=== PATIENT | male | born 1945 | race Caucasian/White ===

== ENCOUNTER 2016-12-27 07:07 | Day surgery (SDC) | payer MEDICARE ==
[~2016-12-27] VITALS: Ht 172.7 cm; Wt 93.2 kg
[~2016-12-27 07:07] MED LIST: BAYER CHEWABLE81 MG PO; CLARITIN 10 MG10 MG PO; GLUCOPHAGE500 MG PO; HEMOCYTE PLUS C1 CAP PO; HYDROCHLOROTH12.5 M1 PO; HYDROCHLOROTHIA25 MG PO; HYDROCODONE-APA1 TAB PO; K-DUR20 MEQ PO; LASIX40 MG PO; LISINOPRIL10 MG PO; METOPROLOL TART50 MG PO; NIASPAN500 MG PO; PLAVIX75 MG PO; PRAVACHOL40 MG PO
[2016-12-27 08:20] LABS: BASOPHILS 0.5 % (0.0-2.0); EOSINOPHILS 1.8 % (0-7); HEMATOCRIT 42.6 % (42.0-54.0); IMMATURE GRANULOCYTES 0.6 % (0-5); LYMPHOCYTES 32.6 % (15-50); MCH 29.9 pg (26.0-34.0); MCHC 32.9 g/dL (31.0-37.0); MEAN PLATELET VOLUME 9.1 fL (7.4-10.4); MONOCYTES 8.5 % (2-11); RBC 4.68 10x6/uL (4.20-6.10); RDW 13.7 % (11.5-14.5); WBC 6.6 10x3/uL (4.8-10.8)
[2016-12-27 08:28] LABS: CALCIUM 9.4 mg/dL (8.5-10.1); CARBON DIOXIDE 32.4 mmol/L (21.0-32.0); CREATININE - SERUM 1.2 mg/dL (0.6-1.3); PLATELET COUNT 199 10x3/uL (130-400); POTASSIUM - SERUM 4.4 mmol/L (3.5-5.1)
[2016-12-27] MEDS ORDERED: HYDROCHLOROTHIA25 MG PO (08:31)
[2016-12-27 08:37] VITALS: BP 121/62; Ht 172.7 cm; Wt 93.2 kg
--- NOTE | 2016-12-27 10:23 | NUR ---
1024-DILATE ESOPHAGUS WITH 54 FR .
--- NOTE | 2016-12-27 11:34 | NUR ---
1115-RECEIVED PT FROM GI LAB, PASSING GAS AND DENIES ANY N/V FAMILY AT BEDSIDE WILL CONTINUE TO MONITOR 1135-FULL LIQUID TRAY GIVEN ALONG WITH A COKE. DR HERNANDEZ IN ROOM SPEAKING WITH PATIENT AND PTS FAMILY
--- NOTE | 2017-01-27 09:40 | HP ---
PATIENT: JENNY HERNÁNDEZ MEDICAL RECORD: [id number] ACCOUNT: [id number] LOCATION:DFeliceOPS : 43 ADMISSION DATE: 12/27/16 HISTORY AND PHYSICAL EXAMINATION CHIEF COMPLAINT: Heme-positive stool. HISTORY OF PRESENT ILLNESS: The patient's primary care physician is Dr. Parmar. He has had some dysphagia. No odynophagia. Dysphagia is at the level of the cricopharyngeus. He does have gastroesophageal reflux. He has a heme-positive stools. He has noted no hematochezia. He has had no abdominal pain. No prior colonoscopy. SOCIAL HISTORY: He is a smoker. I have advised him to quit smoking. HOME MEDICINES: Plavix, lisinopril, metoprolol, pravastatin, aspirin, hydrochlorothiazide and metformin. ALLERGIES: No known drug allergies. PAST MEDICAL AND SURGICAL HISTORY: Coronary artery disease, hypertension, non-insulin dependent diabetes mellitus, gastroesophageal reflux, myocardial infarction, CABG, carotid endarterectomy. REVIEW OF SYSTEMS: Negative for CVA or seizures. Negative for thyroid disease or renal disease. PHYSICAL EXAMINATION: GENERAL: The patient does not appear acutely ill. He does appear chronically ill. VITAL SIGNS: Reviewed. HEAD: External ears appear normal. EYES: Extraocular movements are intact. NECK: Trachea is midline. CHEST: No intercostal retractions. PULMONARY: Nonlabored and no stridor. ABDOMEN: No peritonitis with movement. IMPRESSION: 1. Fecal occult blood positivity. 2. Gastroesophageal reflux. 3. Dysphagia. PLAN: EGD, esophageal dilation, colonoscopy. TRANSINT:[id number] Voice Confirmation ID: [id number] DOCUMENT ID: [id number] HISTORY AND PHYSICAL [id number] EDGARJENNY DON SKY HERNANDEZ, MILLI VELAZQUEZ at 0940 CC: ARGELIA PRAMAR MD [id number] DICTATION DATE: 12/27/16 1017 DRAPERY ROD ASSEMBLER: 12/27/16 1110 [facility] 12/27/16 [place] [id number]
--- NOTE | 2017-01-27 09:40 | OP ---
PATIENT NAME: JENNY HERNÁNDEZ MEDICAL RECORD: [id number] :41 LOCATION:D.OPS ADMISSION DATE: SURGEON: MILLI HERNANDEZ MD DATE OF OPERATION: 12/27/2016 PREOPERATIVE DIAGNOSES: 1. Gastroesophageal reflux. 2. Dysphagia. 3. Fecal occult blood positivity. POSTOPERATIVE DIAGNOSES: 1. Gastroesophageal reflux. 2. Dysphagia. 3. Fecal occult blood positivity. 4. 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 5. No hiatal hernia. 6. Multiple gastric erosions likely the source of the patient's fecal occult blood positivity. 7. Normal-appearing duodenum. 8. Two colon polyps. Both were less than 1 cm in size and both were sessile. 9. Enlarged internal hemorrhoids. PROCEDURE: 1. Esophagogastroduodenoscopy with antral and distal esophageal biopsies. 2. Esophageal dilation with a through the catheter balloon to 54-Macanese. 3. Total colonoscopy to cecum. 4. Hot biopsy forceps polypectomies times 2. SURGEON: Milli Hernandez MD. BEAD STRINGER: None. BLOOD LOSS: Minimal. ANESTHESIA: IV sedation. COMPLICATIONS: None. The reason for the anesthesia staff being present during the procedure includes excess secretions as well as smoking history and probable need for airway manipulation during the procedure, which was necessary. ENDOSCOPIC COURSE: The patient was conveyed to an endoscopy suite electively on 12/27/2016. IV sedation was induced by the anesthesia staff. A bite block was inserted. A gastroscope was inserted into the mouth. It was advanced easily into the hypopharynx. The esophagus was easily intubated as were the stomach and duodenum. Upon withdrawal, retroflexed and angulus views were obtained. Antral biopsies were obtained. I withdrew into the cardia of the stomach. I advanced it through the catheter balloon. I then sequentially dilated the entire length of the esophagus to 54-Macanese. The endoscope and balloon dilator were then removed. I re-endoscoped the patient's esophagus and stomach. There had been no evidence of false passage or perforation. Multiple biopsies were obtained in the distal esophagus in the area that likely represents Nova esophagus. The endoscope was then withdrawn under direct vision. OPERATIVE REPORT [id number] JENNY HERNÁNDEZ The patient was placed 180 degrees and placed in the Wheeler position. A digital rectal examination was performed. The prostate was slightly enlarged. It was without nodules. It was symmetric. A colonoscope was inserted through the anus. It was easily advanced to the cecum. The prep was adequate. I slowly withdrew the endoscope. I irrigated and aspirated extensively. I utilized a combination of direct imaging as well as narrow band imaging. I dragged the folds. The pullback was greater than a 14-minute pullback. Two polyps were removed. These were small sessile polyps. They were removed in their entireties utilizing hot biopsy forceps polypectomy technique. A retroflexed view was obtained in the rectum. I then unretroflexed the scope and removed it under direct vision. I will see the patient in my office in 2-3 weeks to review the results of his biopsies. I will ensure that he is on a proton pump inhibitor as well. Alternatively, we may place him on H2 rory as he is on Plavix. TRANSINT:[id number] Voice Confirmation ID: [id number] DOCUMENT ID: [id number] MILLI HERNANDEZ MD at 0940 CC: ARGELIA KEY MD [id number] DICTATION DATE: 12/27/16 1119 SPONSORSHIP MANAGER: 12/27/162001 [facility] 12/27/16 [facility] [address] [place] [address]
== END 2016-12-27 12:45 | disposition home or self-care (01) ==
LOC: D.OPS 07:07
PROVIDERS: Anesthesiology
DX: K25.9 Gastric ulcer, unspecified as acute or chronic, without hemorrhage or perforation (principal); K29.50 Unspecified chronic gastritis without bleeding; D12.5 Benign neoplasm of sigmoid colon; K64.8 Other hemorrhoids; K21.9 Gastro-esophageal reflux disease without esophagitis; R13.10 Dysphagia, unspecified; R19.5 Other fecal abnormalities; F17.200 Nicotine dependence, unspecified, uncomplicated; Z79.82 Long term (current) use of aspirin; Z79.02 Long term (current) use of antithrombotics/antiplatelets; Z79.84 Long term (current) use of oral hypoglycemic drugs; I25.10 Atherosclerotic heart disease of native coronary artery without angina pectoris; I10 Essential (primary) hypertension; E11.9 Type 2 diabetes mellitus without complications; I25.2 Old myocardial infarction; Z95.1 Presence of aortocoronary bypass graft

== ENCOUNTER 2017-03-10 14:17 | Inpatient (IN) | payer MEDICARE ==
--- NOTE | 2017-03-09 14:00 | NUR ---
ADMISSION ASSESSMENT COMPLETE AT THIS TIME NAD NOTED PT DENIES ANY NEEDS OR DISCMFORT WILL CONTINUE TO MONITOR
[~2017-03-10] VITALS: Ht 172.7 cm; Wt 96.7 kg
[2017-03-10 15:17] LABS: BASOPHILS 0.3 % (0-2); EOSINOPHILS 2.1 % (0-7); HEMATOCRIT 41.6 % (42.0-54.0); HEMOGLOBIN 13.7 g/dL (13.5-17.5); IMMATURE GRANULOCYTES 0.4 % (0-5); LYMPHOCYTES 39.5 % (15-50); MCH 30.2 pg (26.0-34.0); MCHC 32.9 g/dL (31.0-37.0); MCV 91.8 fL (80.0-100.0); MEAN PLATELET VOLUME 9.3 fL (7.4-10.4); NEUTROPHILS 46.7 % (40-80); PLATELET COUNT 215 10x3/uL (130-400); RBC 4.53 10x6/uL (4.20-6.10); RDW 13.9 % (11.5-14.5); WBC 7.3 10x3/uL (4.8-10.8)
[2017-03-10 15:26] LABS: ALBUMIN 3.8 g/dL (3.4-5.0); ALKALINE PHOSPHATASE 56 U/L (46-116); ALT (SGPT) 27 U/L (10-68); BILIRUBIN - TOTAL 0.26 mg/dL (0.2-1.3); CALC OSMOLALITY 283 mosm/kg (275-300); CALCIUM 10.2 mg/dL (8.5-10.1); CARBON DIOXIDE 30.5 mmol/L (21.0-32.0); CHLORIDE - SERUM 103 mmol/L (98-107); CREATININE - SERUM 1.4 mg/dL (0.6-1.3); GLUCOSE 102 mg/dL (74-106); POTASSIUM - SERUM 4.5 mmol/L (3.5-5.1); PROTEIN - SERUM 7.9 g/dL (6.4-8.2); SODIUM 139 mmol/L (136-145); UREA NITROGEN 29 mg/dL (7-18); eGFR NON AFRICAN AMERICAN 53 mL/min (90-120)
[2017-03-10 15:31] LABS: TROPONIN-I < 0.017 ng/mL (0.000-0.060)
--- NOTE | 2017-03-10 16:46 | NUR ---
RECEIVED PT TO ROOM 2113 FROM ER ADMITTED TO DR ALVAREZ FOR OBSERVATION BRADYCARDIA CHEST PT DENIES ANY CHEST PAIN AT THIS TIME SKIN W/D COLOR WNL RESP UNLABORED SALINE LOCK INTACT TO RFA WIHT 20 CA IV CATH NO REDNESS OR EDEMA NOTED GRICEL C/D/I NAD NOTED AT THIS TIME
[2017-03-10] MEDS ORDERED: ZANTAC300 MG PO (16:51)
[2017-03-10] MEDS ORDERED: METOPROLOL TART50 MG PO (16:56)
[2017-03-10] MEDS ORDERED: TOPROL XL50 MG PO (16:56)
[2017-03-10 17:31] VITALS: BP 128/55; Ht 172.7 cm; Wt 96.7 kg
[2017-03-10 19:00] VITALS: BP 140/62
[2017-03-11] VITALS: BP 119/65
[2017-03-11 04:00] VITALS: BP 146/68
[2017-03-11 08:00] VITALS: BP 141/63
--- NOTE | 2017-03-11 09:13 | NUR ---
TELEMETRY SB. VISITOR AT BS. CALL LIGHT IN REACH. WILL CONT. PL;AN OF CARE.
[2017-03-11 12:00] VITALS: BP 128/56
[2017-03-11 16:00] VITALS: BP 129/71
[2017-03-11 19:00] VITALS: BP 159/91
[2017-03-12] VITALS: BP 118/67
[2017-03-12 04:23] VITALS: BP 144/69
[2017-03-12 08:00] VITALS: BP 151/62
--- NOTE | 2017-03-12 12:09 | NUR ---
IV AND TELEMETRY DCD. DC PLANS GIVEN. UNDERSTANDING VOICED. ESCORTED TO CAR BY W/C.
== END 2017-03-12 12:10 | disposition home or self-care (01) | DRG 316 ==
LOC: D.ER 14:17 → D.M2 15:46 → OBSVTIME 15:46 → D.M2 15:46
PROVIDERS: Emergency Medicine; ADMIT Emergency Medicine
DX: R00.8 Other abnormalities of heart beat (principal); I25.10 Atherosclerotic heart disease of native coronary artery without angina pectoris; Z95.1 Presence of aortocoronary bypass graft; E78.5 Hyperlipidemia, unspecified; E11.9 Type 2 diabetes mellitus without complications; I10 Essential (primary) hypertension; K21.9 Gastro-esophageal reflux disease without esophagitis; Z87.891 Personal history of nicotine dependence

== ENCOUNTER 2017-08-25 02:17 | Observation (INO) | payer MEDICARE ==
--- NOTE | ~2017-08-25 | HEMODYNAMI ---
PATIENT:JENNY HERNÁNDEZ MEDICAL RECORD: [id number] : 41 [id number] ADMISSION DATE: 08/25/17 Generatedon:08/25/201715:07 Patient name: JENNY HERNÁNDEZ Patient #: [id number] SSN: DO B: 1945 Date of study: 08/25/2017 Page: Of Hemodynamic Procedure Report Patient Data Patient Demographics Procedure consent was obtained First Name: JENNY Gender: Male Last Name: EDGAR : 1945 Middle Initial: SKY Age: 71 year(s) Patient #: [id number] Race: Additional ID: [id number] Contact details [address]: [address] [place] [address] State: [place] City: [place] Zip code: [address] Admission Admission Data Admission Date: 08/25/2017 Admission Time: 4:51 Arrival Date: 08/25/2017 Arrival Time: 4:51 Admit Source: Other Insurance Payor: Private Room #: D.[id number] health insurance Height (in.): 68 BSA: 2.13 (m2) Height (cm.): 172.72 BMI: 33.45 (kg/m2) Weight (lbs.): 220 Weight (kg.): 99.79 Lab Results Lab Result Date: 08/25/2017 Lab Result Time: 0:00 Biochemistry Name Units Result Min Max BUN mg/dl 19 --(----)*- 7 18 Creatinine mg/dl 1.1 --(--*-)-- 0.6 1.3 CBC Name Units Result Min Max Hemoglobin g/dl 14.5 --(*---)-- 13.5 17.5 Procedure Procedure Types Cath Procedure Diagnostic Procedure LHC LHC w/Coronaries w/Grafts Miscellaneous Procedures Moderate Sedation up to 45 minutes Peripheral Cath Diagnostic Procedure Cath Peripheral Bfbtb-Llxruis-Wob-Off Procedure Description Procedure Date Procedure Date: 08/25/2017 Procedure Start Time: 14:20 Procedure End Time: 15:04 Procedure Staff Name Function Jennifer Dalia RT Monitor Crista Baig RT Monitor Riccardo Martinez MD Performing Physician Becki Campuzano RT Scrub Neil Murray RN Nurse Procedure Data Cath Procedure Fluoroscopy Diagnostic fluoroscopy Total fluoroscopy Time: time: 10.1 min 10.1 min Diagnostic fluoroscopy Total fluoroscopy dose: dose: 1117 mGy 1117 mGy Contrast Material Contrast Material Type Amount (ml) Isovue 300 190 Entry Location Entry Primary Successful Side Size Upsize Upsize Entry Closure Mojica ccessful Closure Location (Fr) 1 (Fr) 2 (Fr) Remarks Device Remarks Femoral Left 5 Fr Exoseal artery Radial Right 6 Fr Mechanical artery Short Compression Estimated blood loss: 10 ml Diagnostic catheters Device Type Used For End Catheter Placement Cordis Aqua 5Fr Dior Abdominal 125cm catheter aortogram with runoff Diagnostic Terumo 5Fr LV Angiography [place] 110cm catheter Diagnostic Terumo 5Fr Right Coronary [place] 110cm catheter Angiography Diagnostic Terumo 5Fr SVG Angiography [place] 110cm catheter Diagnostic Infinity 5Fr SVG Angiography AR 2 MOD catheter Procedure Complications No complications Procedure Medications Medication Administration Route Dosage 0.9% NaCl I.V. 100 ml/hr Oxygen NC 2 l/min Heparin Flush Bag added to field 2 bags (1000units/500ml NS) Lidocaine 2% added to field 20 Versed I.V. 1 mg Fentanyl I.V. 50 mcg Radial Cocktail added to field 1 syringe (Verapomil 2mg/Nitro 400mcg/Heparin 1500units) Radial Cocktail I.A. 1 syringe (Verapomil 2mg/Nitro 400mcg/Heparin 1500units) Hemodynamics Rest BSA: 2.13 (m2) HGB: 14.5 (g/dl) O2 Consumption: Estimated: 252.55 (ml/min) O2 Co nsumption indexed: Estimated:118.57 (ml/min/m) Heart Rate: 79 (bpm) Snapshots Pre Cath Intra NCS Post Cath Vital Signs Time Heart Resp SPO2 etCO2 NIBP (mmHg) Rhythm Pain Sedation Rate (ipm) (%) (mmHg) Status Level (bpm) 14:03:12 70 16 99 26.9 157/73(109) NSR 0 (11) 10(A) , No pain 14:08:03 84 15 92 14.2 149/82(122) NSR 0 (11) 10(A) , No pain 14:12:55 73 16 95 34.4 160/81(141) NSR 0 (11) 10(A) , No pain 14:18:27 72 16 97 37.4 157/84(126) NSR 0 (11) 10(A) , No pain 14:23:20 84 13 99 17.2 131/78(104) NSR 0 (11) 9(A) , No pain 14:28:50 75 14 99 28.4 144/82(119) NSR 0 (11) 9(A) , No pain 14:39:45 79 16 98 19.4 168/105(128) NSR 0 (11) 9(A) , No pain 14:44:38 78 13 96 0 143/69(115) NSR 0 (11) 9(A) , No pain 14:49:17 83 16 95 33.7 98/57(80) NSR 0 (11) 9(A) , No pain 14:54:30 73 13 97 34.4 146/79(122) NSR 0 (11) 9(A) , No pain 14:59:21 75 13 97 26.1 159/82(110) NSR 0 (11) 9(A) , No pain Medications Time Medication Route Dose Verified Delivered Reason Notes Effectiveness by by 14:01:02 0.9% NaCl I.V. 100 Neil Neil Per ml/hr Trevor Murray physician RN RN 14:01:19 Oxygen NC 2 l/min Neil Neil Per Trevor Murray physician RN RN 14:01:36 Heparin Flush added 2 bags Neil Neil used for Bag to Trevor Murray procedure (1000units/500ml field LEWIS RN NS) 14:01:47 Lidocaine 2% added 20ml Neil Neil for local to vial Lorigan Trevor anesthetic field LEWIS RN 14:20:31 Versed I.V. 1 mg Neil Neil for sedation Trevor Murray RN RN 14:20:42 Fentanyl I.V. 50 mcg Neil Neil for sedation Trevor Murray RN RN 14:40:40 Radial Cocktail added 1 Neil Neil for (Verapomil to syringe Trevor Murray vasodilation 2mg/Nitro field LEWIS RN 400mcg/Hepari 14:41:17 Radial Cocktail I.A. 1 Neil Riccardo for (Verapomil syringe Trevor Martinez MD vasodilation 2mg/Nitro RN 400mcg/Robby Procedure Log Time Note 13:47:29 Diagnostic Cath Status : Elective 13:47:51 Neil Murray RN sent for patient. Start room use. 13:47:53 Time tracking: Regular hours 13:47:58 Plan of Care:Hemodynamics will remain stable., Cardiac rhythm will remain stable., Comfort level will be maintained., Respiratory function will remain adequate., Patient/ family verbilizes understanding of procedure., Procedure tolerated without complication., Recovers from procedure without complications.. 13:54:57 Patient received from Med II to CCL 1 Alert and oriented. Tansferred to table in Supine position. 13:54:58 Warm blankets applied, and leslye hugger turned on for patient comfort. 13:54:59 Correct patient and procedure confirmed by team. 13:55:00 Signed procedure consent form obtained from patient. 13:55:01 ECG and BP/O2 sat monitors applied to patient. 14:01:02 0.9% NaCl 100 ml/hr I.V. was administered by Neil Murray RN; Per physician; 14:01:19 Oxygen 2 l/min NC was administered by Neil Murray RN; Per physician; 14:01:36 Heparin Flush Bag (1000units/500ml NS) 2 bags added to field was administered by Neil Murray RN; used for procedure; 14:01:47 Lidocaine 2% 20ml vial added to field was administered by Neil Murray RN; for local anesthetic; 14:02:00 Vital chart was started 14:08:04 Admit Source: Other 14:08:09 Arrival Date: 08/25/2017 4:51:00 AM 14:08:20 Insurance Payor : Private health insurance 14:09:42 Patient Weight : 220 lbs 14:10:03 Patient Height : 68 inches 14:15:20 Baseline sample Acquired. 14:15:27 Full Disclosure recording started 14:15:31 H&P Date Dictated: 08/25/2017 New H&P dictated by physician.. 14:15:32 Pre-procedure instructions explained to patient. 14:15:33 Pre-op teaching completed and patient verbalized understanding. 14:15:34 Family in waiting room. 14:15:35 Patient NPO since Midnight. 14:15:54 Is the patient allergic to Iodine/contrast media? No. 14:15:56 Was the patient premedicated? No 14:15:57 Is patient on blood thinner?No 14:15:58 Patient diabetic? Yes. 14:16:03 Previous problem with sedation/anesthesia? No ? 14:16:06 Snore? Yes 14:16:08 Sleep apnea? Yes 14:16:26 If diabetic: On Metformin? Yes 14:16:29 If on Metformin: Last Dose? 08/24/2017 14:16:33 Deviated septum? No 14:16:34 Sticks out tongue? Yes 14:16:34 Opens mouth fully? Yes 14:16:37 Airway obstruction? No ? 14:16:39 Dentures? No ? 14:16:44 Pre procedure: right dorsailis pedis pulse Doppler 14:16:48 Pre procedure: left dorsailis pedis pulse Doppler 14:16:50 Patient pain scale 0/10 ?. 14:17:02 IV patent on arrival in left antecubital with 0.9% NaCl at [facility]. 14:17:23 Lab Result : Hemoglobin 14.5 g/dl 14:17:23 Lab Result : Creatinine 1.1 mg/dl 14:17:23 Lab Result : BUN 19 mg/dl 14:17:27 Lab results completed and on chart. 14:17:34 Bilateral groins area was prepped with chlora-prep and draped in sterile fashion 14:17:35 Alarms reviewed by R. N. 14:17:36 Sharps counted by scrub and verified by R.N. 14:17:37 Physician arrived 14:17:38 Final Timeout: patient, procedure, and site verified with staff and physician. All members of the team are in agreement. 14:17:38 --------ALL STOP TIME OUT------ 14:17:41 Right groin site verified by team. 14:17:44 Physical assessment completed. ASA score P 2 - A patient with mild systemic disease as per Riccardo Martinez MD. 14:17:49 Sedation plan: IV Moderate Sedation Versed, Fentanyl 14:17:55 Bag Decanter opened to sterile field. 14:17:55 Acist Syringe opened to sterile field. 14:17:56 Terumo 5Fr [place] Sheath opened to sterile field. 14:17:56 Medline Cath Pack opened to sterile field. 14:17:57 St Kavon 260cm J .035 wire opened to sterile field. 14:17:58 Acist Manifold opened to sterile field. 14:17:58 Acist Hand Control opened to sterile field. 14:17:59 Tegaderm 4 x 4 opened to sterile field. 14:17:59 Diagnostic Infinity 5Fr Multipack catheter opened to sterile field. 14:20:27 Procedure started. 14:20:31 Versed 1 mg I.V. was administered by Neil Murray RN; for sedation; 14:20:34 Local anesthetic to right femoral artery with Lidocaine 2% by Riccardo Martinez MD.INITIAL ACCESS ONLY 14:20:42 Fentanyl 50 mcg I.V. was administered by Neil Murray RN; for sedation; 14:26:34 Unable to gain access through right femoral artery; attempting to gain left femoral access 14:26:40 Local anesthetic to left femerol artery with Lidocaine 2% by Riccardo Martinez MD.ADDITIONAL ACCESS 14:28:24 A 5 Fr sheath was inserted into the Left Femoral artery 14:31:20 Terumo ANGLE 260cm glide wire opened to sterile field. 14:31:37 glide wire advanced. 14:38:03 Unable to advance wire up LFA 14:38:13 Right Radial area was prepped with chlora-prep and draped in sterile fashion 14:38:20 Local anesthetic to right radial artery with Lidocaine 2% by Riccardo Martinez MD.ADDITIONAL ACCESS 14:40:40 Radial Cocktail (Verapomil 2mg/Nitro 400mcg/Heparin 1500units) 1 syringe added to field was administered by Neil Murray RN; for vasodilation; 14:40:57 A 6 Fr Short sheath was inserted into the Right Radial artery 14:41:17 Radial Cocktail (Verapomil 2mg/Nitro 400mcg/Heparin 1500units) 1 syringe I.A. was administered by Riccardo Martinez MD; for vasodilation; 14:42:39 A Cordis Aqua 5Fr Dior 125cm catheter was advanced over the wire and used for Abdominal aortogram with runoff. 14:46:34 Catheter removed. 14:48:42 A Diagnostic Terumo 5Fr [place] 110cm catheter was advanced over the wire and used for LV Angiography. 14:48:47 LV gram done using JUÁREZ 14:48:52 Injector settings: Ml/sec: 5, Volume: 15, 14:49:20 Catheter removed. 14:50:00 A Diagnostic Terumo 5Fr [place] 110cm catheter was advanced over the wire and used for Right Coronary Angiography. 14:50:50 A Diagnostic Terumo 5Fr [place] 110cm catheter was advanced over the wire and used for SVG Angiography.to Circ 14:51:59 Catheter removed. 14:52:42 A Diagnostic Infinity 5Fr [place] 2 MOD catheter was advanced over the wire and used for SVG Angiography.to RCA 14:52:58 Cordis 6FR XB 3.5 guide catheter opened to sterile field. 14:53:56 Catheter removed. 14:54:29 6 Fr XB 3.5 guide catheter was inserted over the wire 14:56:10 LCA angiography performed. 14:56:55 Catheter removed. 14:57:27 Sheath removed intact; hemostasis achieved with Exoseal to the Left Femoral artery. 14:57:33 Sheath removed intact; hemostasis achieved with Mechanical Compression to the Right Radial artery. 14:57:35 Procedure ended.(Physican Out) 14:57:47 Fluoroscopy time 10.10 minutes. 14:57:51 Fluoroscopy dose: 1117 mGy 14:57:51 Flurop Dose total: 1117 14:58:03 Contrast amount:Isovue 300 190ml. 14:58:05 Sharps counted by scrub and verified by R.N. 14:58:08 TR band inflated with 12cc of air. 14:58:10 Insertion/operative site no bleeding no hematoma. 14:58:15 Post-op/insertion site Left Femoral artery dressed using a 4 x 4 and Tegaderm. 14:58:20 Post left femerol artery:stable, clean and dry 14:58:26 Post right radial artery:stable, clean and dry 14:58:28 Post Procedure Pulses reassessed and unchanged 14:58:33 Post-procedure physical assessment completed. ASA score P 2 - A patient with mild systemic disease as per Riccardo Martinez MD. 14:58:48 Post procedure rhythm: unchanged. 14:58:51 Estimated blood loss: 10 ml 14:58:53 Patient needs reinforcement of post procedure teaching. 14:58:53 Post procedure instruction explained to patient.Patient verbalizes understanding. 14:59:12 Procedure type changed to Cath procedure, Diagnostic procedure, LHC, LHC w/Coronaries w/Grafts, Miscellaneous Procedures, Moderate Sedation up to 45 minutes, Peripheral Cath Diagnostic Procedure, Cath Peripheral, Mnhcz-Gvhyaor-Lhk-Off 14:59:18 Procedure Complication : No complications 15:00:47 Cordis 5Fr Exoseal opened to sterile field. 15:01:17 Terumo TR Band Standard opened to sterile field. 15:01:49 MBrace Wrist Support opened to sterile field. 15:02:07 Terumo 6Fr Slender Glidesheath opened to sterile field. 15:03:44 Procedure and supply charges have been captured, reviewed, submitted and are correct. 15:03:46 See physician's report for complete and final results. 15:03:47 Vital chart was stopped 15:03:51 Report given to PCU. 15:03:55 Patient transfered to PCU with Bed. 15:04:03 Full Disclosure recording stopped 15:04:03 Procedure ended. 15:04:07 End room use (Document Last) Device Usage Item Name Manufacture Quantity Catalog Hospital Part Current Minimal Lot# / Number Charge Number Stock Stock Serial# Code Acist Acist 1 54826 412011 183512 396963 20 Syringe [employer] Inc Bag Microtek 1 2002S 880698 39398 284832 5 Decanter [employer] Inc. Medline Cardinal 1 [id number] 905195 16000 901447 5 Cath Pack Health Terumo 5Fr Terumo 1 [id number] 359639 005203 081880 [address] [place] [address] St Kavon 1 160686 038151 676311 218568 30 260cm J .035 wire Acist Hand Acist 1 71038 571361 757241 380543 5 Control Medical Systems Inc Acist Acist 1 73438 337895 517377 815714 5 Manifold Medical Systems Inc Diagnostic Cardinal 1 [id number] 937604 88520 110451 30 Infinity Health 5Fr Multipack catheter Tegaderm 4 3M 1 1626W 373611 138492 425272 5 x 4 Terumo Terumo 1 [id number] 930052 257032 941396 5 ANGLE 260cm glide wire Cordis Aqua Cardinal 1 [id number] 580224 250438 370234 5 5Fr Health Dior 125cm catheter Diagnostic Terumo 1 40-7182 148081 352256 082223 5 Terumo 5Fr [place] 110cm catheter Diagnostic Cardinal 1 [id number] 570606 801421 977052 20 Infinity Health 5Fr [place] 2 MOD catheter Cordis 6FR Cardinal 1 [id number] 581609 451038 085672 2 XB 3.5 Health guide catheter Cordis 5Fr Cardinal 1 EX500 688551 698494 267838 10 Exoseal Health Terumo TR Terumo 1 [id number] 424186 092953 102618 40 Band Standard MBrace Advanced 1 140-0250-00 058889 89775 089342 5 Wrist Vascular Support Dynamics Terumo 6Fr Terumo 1 [id number] 658571 201349 269940 40 Slender Glidesheath Signature Audit [place] Stage Time Signature Unsigned Intra-Procedure 08/25/2017 Jennifer Gómez 3:04:20 PM Counts RT(R) RT(R) 08/25/2017 3:06:23 PM Intra-Procedure 08/25/2017 Jennifer 3:07:22 PM Counts RT(R) Signatures Monitor : Jennifer Signature : Counts RT Date : Time : Monitor : Crista Baig RT Signature : Date : Time : [place] [address] [place] [address]
[~2017-08-25 02:17] MED LIST changes: +TOPROL XL50 MG PO; +ZANTAC300 MG PO
[2017-08-25 03:00] LABS: BASOPHILS 0.5 % (0-2); EOSINOPHILS 4.1 % (0-7); HEMATOCRIT 43.3 % (42.0-54.0); HEMOGLOBIN 14.7 g/dL (13.5-17.5); IMMATURE GRANULOCYTES 0.3 % (0-5); LYMPHOCYTES 42.3 % (15-50); MCH 31.8 pg (26.0-34.0); MCHC 33.9 g/dL (31.0-37.0); MCV 93.7 fL (80.0-100.0); MEAN PLATELET VOLUME 9.1 fL (7.4-10.4); MONOCYTES 8.3 % (2-11); NEUTROPHILS 44.5 % (40-80); RBC 4.62 10x6/uL (4.20-6.10); RDW 12.8 % (11.5-14.5); WBC 6.3 10x3/uL (4.8-10.8)
[2017-08-25 03:01] LABS: PLATELET COUNT 164 10x3/uL (130-400)
[2017-08-25 03:12] LABS: ALBUMIN 3.7 g/dL (3.4-5.0); ALKALINE PHOSPHATASE 40 U/L (46-116); ALT (SGPT) 42 U/L (10-68); BILIRUBIN - TOTAL 0.27 mg/dL (0.2-1.3); CALC OSMOLALITY 285 mosm/kg (275-300); CALCIUM 9.3 mg/dL (8.5-10.1); CARBON DIOXIDE 31.1 mmol/L (21.0-32.0); CHLORIDE - SERUM 104 mmol/L (98-107); CREATININE - SERUM 1.2 mg/dL (0.6-1.3); GLUCOSE 130 mg/dL (74-106); POTASSIUM - SERUM 3.9 mmol/L (3.5-5.1); PROTEIN - SERUM 7.4 g/dL (6.4-8.2); SODIUM 141 mmol/L (136-145); UREA NITROGEN 21 mg/dL (7-18); eGFR NON AFRICAN AMERICAN 63 mL/min (90-120)
[2017-08-25 03:23] LABS: CHOL - HDL RATIO 4.1 ratio (2.3-4.9); CHOLESTEROL, TOTAL 116 mg/dL (0-200); CKMB 1.1 U/L (0.0-3.6); CREATINE KINASE 64 UL (21-232); HDL CHOLESTEROL 28 mg/dL (32-96); LDL CHOLESTEROL 52 mg/dL (0-100); LDL-HDL RATIO 1.9 ratio (1.5-3.5); TRIGLYCERIDE 184 mg/dL (30-200); TROPONIN-I < 0.017 ng/mL (0.000-0.060)
--- NOTE | 2017-08-25 06:23 | NUR ---
PATIENT ARRIVED FROM THE ER VIA WHEELCHAIR ALERT, FAMILY AT BEDSIDE. ORIENTED TO CALL LIGHT AND ROOM. CALL LIGHT IN REACH.
[2017-08-25] MEDS ORDERED: METOPROLOL TART50 MG PO (06:32)
[2017-08-25 07:30] VITALS: BP 169/70; BMI 33.5
[2017-08-25 09:32] LABS: CREATINE KINASE 58 UL (21-232); TROPONIN-I < 0.017 ng/mL (0.000-0.060)
--- NOTE | 2017-08-25 09:37 | NUR ---
Telemety SR with multiple PVCS noted. Will monitor.
[2017-08-25 10:09] LABS: BASOPHILS 0.3 % (0-2); EOSINOPHILS 3.7 % (0-7); HEMATOCRIT 43.3 % (42.0-54.0); HEMOGLOBIN 14.5 g/dL (13.5-17.5); IMMATURE GRANULOCYTES 0.2 % (0-5); LYMPHOCYTES 41.1 % (15-50); MCH 31.4 pg (26.0-34.0); MCHC 33.5 g/dL (31.0-37.0); MCV 93.7 fL (80.0-100.0); MEAN PLATELET VOLUME 9.4 fL (7.4-10.4); MONOCYTES 8.3 % (2-11); NEUTROPHILS 46.4 % (40-80); PLATELET COUNT 171 10x3/uL (130-400); RBC 4.62 10x6/uL (4.20-6.10); RDW 12.7 % (11.5-14.5); WBC 6.2 10x3/uL (4.8-10.8)
--- NOTE | 2017-08-25 10:11 | NUR ---
Gregg signed for [facility]. Morphine 5 mg given for c/o c/p. Will cont. to monitor.
[2017-08-25 10:16] LABS: CALCIUM 9.2 mg/dL (8.5-10.1); CARBON DIOXIDE 30.3 mmol/L (21.0-32.0); CREATININE - SERUM 1.1 mg/dL (0.6-1.3); POTASSIUM - SERUM 4.3 mmol/L (3.5-5.1)
[2017-08-25 11:39] VITALS: BP 129/66
--- NOTE | 2017-08-25 14:30 | NUR ---
ME-OPS GIVEN. TO SALES SUPPORT REP BY Marcia
--- NOTE | 2017-08-25 15:30 | NUR ---
BACK FROM PATIENT DAY COORDINATOR. VS WNL. RIGHT AND LEFT GROIN STABLE WITHOUT BLEEDING OR HEMATOMA NOTED. TR BAND INTACT TO RIGHT WRIS. WILL CONT. PLAN OF CARE.
--- NOTE | 2017-08-25 17:21 | NUR ---
BED REST UP. GROIN STABLE.
--- NOTE | 2017-08-25 17:58 | NUR ---
TR BAND DCD WITHOUT BLEEDING OR HEMATOMA NOTED. IV AND TELEMETRY DCD. DC PLANS GIVEN. UNDERSTANDING VOICED.
--- NOTE | 2017-08-25 18:06 | NUR ---
ESCORTED TO CAR BY W/C.
--- NOTE | 2017-08-29 16:42 | OP ---
PATIENT NAME: JENNY HERNÁNDEZ MEDICAL RECORD: [id number] :43 LOCATION:D.M2 D.2117 ADMISSION DATE:08/25/17 SURGEON: HAFSA PENALOZA MD DATE OF OPERATION: 08/25/2017 PROCEDURES: 1. Left heart catheterization. 2. Selective coronary angiography. 3. Vein graft angiography. 4. MURRAY angiography. 5. Aortofemoral runoff. 6. Abdominal aortography. INDICATION: Angina, coronary artery disease, claudication, and peripheral vascular disease. PROCEDURE IN DETAIL: After informed consent was obtained and after a detailed explanation of the risks, benefits as well as alternative therapies, the patient elected to proceed with angiogram and angioplasty. The right radial area was prepped and draped in normal sterile fashion. The right radial artery was cannulated via modified Seldinger technique with placement of 5-Cymro sheath. All catheters exchanged through this sheath. FINDINGS: Left ventriculogram was performed in standard 30-degree JUÁREZ view, reveals good cardiac wall motion throughout all segments. Overall ejection fraction is 60%. SELECTIVE CORONARY ANGIOGRAPHY: 1. Left main has a 70% stenosis in the proximal aspect. 2. Left anterior descending is patent, MURRAY to the LAD is widely patent. 3. Left circumflex is totally occluded. 4. Vein graft to the circumflex is widely patent. 5. Right coronary is totally occluded. 6. Vein graft to the right coronary is totally occluded, distal circumflex and distal RCA are widely patent. 7. Abdominal aortography was performed. The catheter was advanced to perform aortofemoral runoff. Abdominal aortography reveals no significant abdominal aortic disease. No dissection or aneurysm formation. LEFT LEG: A. Iliac. The iliac is replaced with an aortofemoral graft that is widely patent. B. Femoral system: The common superficial and deep femoral are widely patent. C. Popliteal and infrapopliteal vessels are widely patent. RIGHT LEG: A. Iliac is totally occluded, it does not appear to be grafted. B. There is a femoral-femoral crossover graft from left femoral to right femoral, This is widely patent. C. Femoral system including superficial femoral was widely patent with only mild irregularities. D. Popliteal and infrapopliteal vessels are patent with good 3-vessel runoff to the foot. OVERALL IMPRESSION: OPERATIVE REPORT [id number] JENNY HERNÁNDEZ 1. Wide patency of all cardiac grafts. No disease elsewise. 2. Wide patency of the left aortofemoral graft, wide patency of the femoral-femoral crossover graft. No disease elsewise. Continue medical management of the coronary artery disease and peripheral vascular disease. TRANSINT:[id number] Voice Confirmation ID: [id number] DOCUMENT ID: [id number] HAFSA PENALOZA MD at 1642 CC: [id number] DICTATION DATE: 08/25/17 1503 MEDICAL GENETICS DIRECTOR: 08/25/17 1708 DIS IN 08/25/17 [facility] [address] [place] [address]
== END 2017-08-25 18:06 | disposition home or self-care (01) ==
LOC: D.ER 02:17 → OBSVTIME 04:51 → D.M2 04:51 → D.SDCHOLD 17:00 → D.M2 17:03
PROVIDERS: Emergency Medicine; ADMIT Internal Medicine Cardiovascular Disease
DX: I25.110 Atherosclerotic heart disease of native coronary artery with unstable angina pectoris (principal); I10 Essential (primary) hypertension; Z95.5 Presence of coronary angioplasty implant and graft; Z87.891 Personal history of nicotine dependence; I73.9 Peripheral vascular disease, unspecified; E11.9 Type 2 diabetes mellitus without complications; J44.9 Chronic obstructive pulmonary disease, unspecified; I74.5 Embolism and thrombosis of iliac artery

== ENCOUNTER 2018-03-06 08:08 | Day surgery (SDC) | payer MEDICARE ==
[~2018-03-06] VITALS: Ht 172.7 cm; Wt 97.7 kg
--- NOTE | ~2018-03-06 | OP ---
PATIENT NAME: JENNY HERNÁNDEZ MEDICAL RECORD: [id number] :43 LOCATION:D.OPS ADMISSION DATE: SURGEON: MILLI HERNANDEZ MD DATE OF OPERATION: 03/06/2018 PREOPERATIVE DIAGNOSES: 1. Nova's esophagus. 2. History of colon polyps. POSTOPERATIVE DIAGNOSES: 1. Nova's esophagus. 2. History of colon polyps. 3. Apparent regression of some of the Nova's esophagus. 4. Small hiatal hernia. 5. Two colorectal polyps, sessile, both smaller than 8 mm. PROCEDURES: 1. Esophagogastroduodenoscopy with antral and distal esophageal biopsies. 2. Total colonoscopy to cecum. 3. Hot biopsy forceps polypectomies times 2. SURGEON: Milli Hernandez MD RURAL MAIL CONTRACTOR: None. BLOOD LOSS: Minimal. ANESTHESIA: IV sedation. COMPLICATIONS: None. A consent form was signed. The patient was conveyed to the endoscopy suite electively on 03/06/2018. IV sedation was induced by the anesthesia staff. A bite-block was inserted. A gastroscope was inserted into the mouth. It was advanced easily into the hypopharynx. The esophagus was easily intubated as were the stomach and duodenum. Upon withdrawal, retroflexed and angulus views were obtained. Antral biopsies were obtained. Distal esophageal biopsies were obtained. The endoscope was then withdrawn under direct vision. The patient was then turned 180 degrees and placed in the Wheeler position. A digital rectal examination was performed. The prostate was symmetric and without nodules. A colonoscope was inserted through the anus. It was easily advanced to the cecum. The prep was adequate. Upon withdrawal, I irrigated and aspirated extensively. I dragged the folds. The pullback was greater than a 17-minute pullback. Two hot biopsy forceps polypectomies were performed. There were also some other diminutive polyps which were simply cauterized but not biopsied. A retroflexed view was obtained in the rectum. I then unretroflexed the scope and removed it under direct vision. I will see the patient in followup on a p.r.n. basis. I will be able to communicate with him by phone and discuss the results of the biopsies. I am going to plan for his next upper endoscopy with biopsies as well as his colonoscopy to take place in 3 years. TRANSINT:[id number] Voice Confirmation ID: [id number] DOCUMENT ID: [id number] OPERATIVE REPORT [id number] JENNY HERNÁNDEZ, MILLI VELAZQUEZ at 1157 CC: KP KRUSE M.D., ARGELIA KEY EDWARD [id number] DICTATION DATE: 03/06/18 1052 NAIL ARTIST: 03/06/18 1234 [facility] [place] 03/06/18 [place] [id number]
--- NOTE | ~2018-03-06 | HP ---
PATIENT: JENNY HERNÁNDEZ MEDICAL RECORD: [id number] ACCOUNT: [id number] LOCATION:DFeliceOPS : 43 ADMISSION DATE: 03/06/18 HISTORY AND PHYSICAL EXAMINATION HISTORY OF PRESENT ILLNESS: The patient has a history of Nova esophagus. Also, he has some dysphagia at the level of the cricopharyngeus. I performed an upper endoscopy on him in the past with esophageal dilation. He states that the esophageal dilation did not help with his dysphagia. He has a history of colon polyps as well. He has been off his Plavix since Monday. Today is Monday. HOME MEDICINES: Claritin, Plavix, lisinopril, metoprolol, Pravachol, aspirin, hydrochlorothiazide, Zantac as well as Glucophage. ALLERGIES: No known drug allergies. SOCIAL HISTORY: Former smoker. He does have sleep apnea, is not on CPAP. PAST MEDICAL AND SURGICAL HISTORY: Fem-fem bypass, bilateral carotid endarterectomies, non-insulin dependent diabetes mellitus, CABG, history of myocardial infarction, hypertension, congestive heart failure, gastroesophageal reflux. REVIEW OF SYSTEMS: Negative for renal disease or hepatitis. PHYSICAL EXAMINATION: GENERAL: The patient does not appear acutely ill. He does not appear chronically ill. VITAL SIGNS: Reviewed. EARS: External ears appear normal. EYES: Extraocular movements are intact. NECK: Trachea is midline. CHEST: No intercostal retractions. PULMONARY: Nonlabored. IMPRESSION: 1. History of Nova esophagus. 2. History of colon polyps. PLAN: 1. Upper endoscopy with biopsy. 2. Colonoscopy. TRANSINT:[id number] Voice Confirmation ID: [id number] DOCUMENT ID: [id number] HISTORY AND PHYSICAL [id number] EDGARJENNY DON SKY MILLI HERNANDEZ MD at 1157 CC: KP KRUSE M.D., ARGELIA KEY and PINKY GIVENS [id number] DICTATION DATE: 03/06/18 1008 PLANT NURSERY WORKER: 03/06/18 1030 [facility] 03/06/18 [place] [id number] [place] [address]
[2018-03-06 08:52] VITALS: Ht 172.7 cm; Wt 97.7 kg
[2018-03-06 10:08] LABS: HEMATOCRIT 40.6 % (42.0-54.0); HEMOGLOBIN 13.8 g/dL (13.5-17.5); MCH 30.9 pg (26.0-34.0); MEAN PLATELET VOLUME 9.2 fL (7.4-10.4); RBC 4.46 10x6/uL (4.20-6.10); RDW 13.1 % (11.5-14.5); WBC 6.5 10x3/uL (4.8-10.8)
[2018-03-06 10:21] LABS: CALC OSMOLALITY 280 mosm/kg (275-300); CALCIUM 9.3 mg/dL (8.5-10.1); CARBON DIOXIDE 29.2 mmol/L (21.0-32.0); CHLORIDE - SERUM 101 mmol/L (98-107); CREATININE - SERUM 0.9 mg/dL (0.6-1.3); GLUCOSE 115 mg/dL (74-106); POTASSIUM - SERUM 4.3 mmol/L (3.5-5.1); SODIUM 140 mmol/L (136-145); UREA NITROGEN 16 mg/dL (7-18); eGFR NON AFRICAN AMERICAN 88 mL/min (90-120)
[2018-03-06 11:41] LABS: INR 0.98 (0.85-1.17); PROTIME 12.6 SECONDS (11.6-15.0)
== END 2018-03-06 12:05 | disposition home or self-care (01) ==
LOC: D.OPS 08:08
PROVIDERS: Anesthesiology
DX: K22.70 Barrett's esophagus without dysplasia (principal); K63.5 Polyp of colon; I25.10 Atherosclerotic heart disease of native coronary artery without angina pectoris; I10 Essential (primary) hypertension; E11.9 Type 2 diabetes mellitus without complications; G47.30 Sleep apnea, unspecified; K21.9 Gastro-esophageal reflux disease without esophagitis; Z01.812 Encounter for preprocedural laboratory examination

== ENCOUNTER → 2018-12-14 11:59 | Outpatient (CLI) | payer MEDICARE ==
[2018-03-06 08:52] VITALS: BMI 32.7
== END | disposition home or self-care (01) ==
LOC: D.US 11:59
DX: I65.23 Occlusion and stenosis of bilateral carotid arteries (principal)

== ENCOUNTER → 2019-06-04 14:04 | Outpatient (CLI) | payer MEDICARE ==
[2018-03-06 08:52] VITALS: BMI 32.7
== END | disposition home or self-care (01) ==
LOC: D.HCCARDIO 14:04
PROVIDERS: ATTEND Internal Medicine Cardiovascular Disease
DX: I36.1 Nonrheumatic tricuspid (valve) insufficiency (principal); I25.10 Atherosclerotic heart disease of native coronary artery without angina pectoris; I10 Essential (primary) hypertension

== ENCOUNTER → 2020-06-10 11:26 | Outpatient (CLI) | payer OTHER ==
[2018-03-06 08:52] VITALS: BMI 32.7
[~2020-06-10 11:26] MED LIST changes: +JARDIANCE10 MG PO
== END | disposition home or self-care (01) ==
LOC: D.HCCECHO 11:26
PROVIDERS: ATTEND Internal Medicine Cardiovascular Disease
DX: I25.10 Atherosclerotic heart disease of native coronary artery without angina pectoris (principal)

== ENCOUNTER 2020-06-10 12:08 | Emergency (ER) | payer OTHER ==
[~2020-06-10] VITALS: Ht 172.7 cm; Wt 96.8 kg
[~2020-06-10 12:08] MED LIST changes: -JARDIANCE10 MG PO
[2020-06-10 12:27] VITALS: Ht 172.7 cm; Wt 96.8 kg
[2020-06-10] MEDS ORDERED: JARDIANCE10 MG PO (12:32)
[2020-06-10 13:41] LABS: BASOPHILS 0.2 % (0-2); EOSINOPHILS 0.4 % (0-7); HEMATOCRIT 40.5 % (42.0-54.0); IMMATURE GRANULOCYTES 0.4 % (0-5); LYMPHOCYTES 23.1 % (15-50); MCHC 32.1 g/dL (31.0-37.0); MCV 87.3 fL (80.0-100.0); MEAN PLATELET VOLUME 8.5 fL (7.4-10.4); MONOCYTES 8.2 % (2-11); NEUTROPHILS 67.7 % (40-80); PLATELET COUNT 276 10x3/uL (130-400); RBC 4.64 10x6/uL (4.20-6.10); RDW 14.5 % (11.5-14.5); WBC 8.1 10x3/uL (4.8-10.8)
[2020-06-10 13:51] LABS: ANION GAP 12.4 mmol/L (8-16); CALCIUM 9.4 mg/dL (8.5-10.1); CARBON DIOXIDE 30.9 mmol/L (21.0-32.0); CREATININE - SERUM 1.3 mg/dL (0.6-1.3); POTASSIUM - SERUM 4.3 mmol/L (3.5-5.1)
[2020-06-10 13:57] LABS: ALBUMIN 3.5 g/dL (3.4-5.0); BILIRUBIN - TOTAL 0.24 mg/dL (0.2-1.3); PROTEIN - SERUM 8.1 g/dL (6.4-8.2)
[2020-06-10 14:51] VITALS: BP 133/51
== END 2020-06-10 15:00 | disposition home or self-care (01) ==
LOC: D.ER 12:08
PROVIDERS: Family Medicine
DX: M25.512 Pain in left shoulder (principal); M25.511 Pain in right shoulder; E11.9 Type 2 diabetes mellitus without complications; I10 Essential (primary) hypertension; I25.2 Old myocardial infarction; J44.9 Chronic obstructive pulmonary disease, unspecified; Z95.1 Presence of aortocoronary bypass graft; R53.1 Weakness; R63.4 Abnormal weight loss; Z79.84 Long term (current) use of oral hypoglycemic drugs

== ENCOUNTER 2020-08-11 05:38 | Day surgery (SDC) | payer OTHER ==
[~2020-08-11] VITALS: Ht 172.7 cm; Wt 79.5 kg
--- NOTE | ~2020-08-11 | OP ---
PATIENT NAME: JENNY HERNÁNDEZ MEDICAL RECORD: [id number] :41 LOCATION:D.OPS ADMISSION DATE: SURGEON: ENMANUEL HERNANDEZ MD DATE OF OPERATION: 08/11/2020 PREOPERATIVE DIAGNOSES: 1. History of colon polyps. 2. History of Nova's esophagus in need of surveillance upper endoscopy. POSTOPERATIVE DIAGNOSES: 1. History of colon polyps. 2. History of Nova's esophagus in need of surveillance upper endoscopy. 3. Poor colonic prep. 4. LA grade II esophagitis. 5. Mild left-sided diverticulosis. PROCEDURES: 1. Esophagogastroduodenoscopy with distal esophageal and antral biopsies. 2. Total colonoscopy to cecum. SURGEON: Enmanuel Hernandez MD TRAUMA COORDINATOR: None. BLOOD LOSS: Minimal. ANESTHESIA: IV sedation. A consent form was signed. OPERATIVE COURSE: The patient was conveyed to the endoscopy suite electively on 08/11/2020. IV sedation was induced by the anesthesia staff. A bite block was inserted. A gastroscope was inserted into the mouth. It advanced easily into the hypopharynx. The esophagus was easily intubated as were the stomach and duodenum. Upon withdrawal, retroflexed and angulus views were obtained. Hot biopsies were used for antral biopsies as the patient has been on Plavix. Multiple biopsies were taken at the EG junction due to history of Nova's esophagus as the patient is in need of surveillance upper endoscopy. The endoscope was then withdrawn under direct vision. The patient was turned 180 degrees and placed in the Wheeler position. A digital rectal examination was performed. A colonoscope was inserted through the anus. It was easily advanced to the cecum. The prep was inadequate. I slowly withdrew the endoscope. I irrigated and aspirated extensively. A combination of normal imaging and narrow band imaging were utilized. I dragged the folds. The pullback was greater than a 16-minute pullback. A retroflexed view was obtained in the rectum. I then unretroflexed the scope and removed it under direct vision. I will plan for his next upper and lower endoscopy to take place in 3 years. There is no need for the patient to follow up with me in the office as his daughter is friend of mine and I can relay the pathology results to him through her. TRANSINT:[id number] Voice Confirmation ID: [id number] DOCUMENT ID: [id number] OPERATIVE REPORT [id number] JENNY HERNÁNDEZ ROBERT MD CC: ARGELIA KEY [id number] DICTATION DATE: 08/11/20 1028 WELDING MACHINE OPERATOR ELECTROSLAG: 08/11/20 1339 [facility] [place] 08/11/20 [place] [id number] [place] [address]
[~2020-08-11 05:38] MED LIST changes: +JARDIANCE10 MG PO
[2020-08-11 06:26] LABS: HEMATOCRIT 42.2 % (42.0-54.0); HEMOGLOBIN 13.3 g/dL (13.5-17.5); MCH 27.3 pg (26.0-34.0); MCHC 31.5 g/dL (31.0-37.0); MCV 86.7 fL (80.0-100.0); MEAN PLATELET VOLUME 8.8 fL (7.4-10.4); RBC 4.87 10x6/uL (4.20-6.10); RDW 15.1 % (11.5-14.5); WBC 6.3 10x3/uL (4.8-10.8)
[2020-08-11] MEDS ORDERED: PRAVACHOL20 MG PO (06:43)
[2020-08-11] MEDS ORDERED: PEPCID AC20 MG PO (06:46)
[2020-08-11] MEDS ORDERED: GLYBURIDE5 M1 (06:47)
[2020-08-11 07:22] VITALS: BP 161/64; Ht 172.7 cm; Wt 79.5 kg
--- NOTE | 2020-08-11 07:29 | NUR ---
0705 DR. HERNANDEZ BEEPED & RETURNED CALL. INFORMED PATIENT HAS NOT HELD ASA OR PLAVIX TAKING THROUGH 08/11/20. STATES PATIENT IS OKAY FOR PROCEDURES TODAY. Naif PEÑA R.N.
--- NOTE | 2020-08-11 10:00 | HP ---
PATIENT: JENNY HERNÁNDEZ MEDICAL RECORD: [id number] ACCOUNT: [id number] LOCATION:[place] : 41 ADMISSION DATE: 08/11/20 PCP: PINKY GIVENS MD HISTORY AND PHYSICAL EXAMINATION HISTORY OF PRESENT ILLNESS: The patient has a history of Nova's esophagus. Also, a history of colon polyps. He is here for a surveillance upper and lower endoscopies. The patient has been on Plavix and has been taking his Plavix. PAST MEDICAL AND SURGICAL HISTORY: Noninsulin-dependent diabetes mellitus, gastroesophageal reflux, chronic shoulder pain bilaterally, history of sleep apnea. He has CPAP, but does not use it. HOME MEDICINES: He is on a statin, lisinopril, aspirin, Pepcid as well as Plavix. ALLERGIES: No known drug allergies. PHYSICAL EXAMINATION: GENERAL: The patient does not appear acutely ill. He does not appear chronically ill. VITAL SIGNS: Reviewed. EARS: External ears appear normal. EYES: Extraocular movements are intact. NECK: Trachea is midline. CHEST: No intercostal retractions. PULMONARY: Nonlabored, no stridor. IMPRESSION: 1. History of Nova's esophagus. 2. History of colon polyps. PLAN: Surveillance upper and lower endoscopies. TRANSINT:[id number] Voice Confirmation ID: [id number] DOCUMENT ID: [id number] MILLI HERNANDEZ MD at 1000 CC: ARGELIA KEY [id number] DICTATION DATE: 08/11/20 0857 DIRECTOR OF THE BIOPHYSICS FACILITY: 08/11/20 0946 [facility] [address] [place] [address]
--- NOTE | 2020-08-11 11:19 | NUR ---
[address] HERNANDEZ. PROCEDURE PHOTOS & FINDINGS REVIEWED WITH PATIENT & SON. PT HAS BEEN UP TO BATHROOM 2 MORE TIMES WITH CONTINUED PASSING OF FLATUS. Naif PEÑA R.N. 1118 IV DC'ED WITH CATH INTACT & 575ML/LTC. DRESSING. Naif PEÑA R.N.
--- NOTE | 2020-08-11 13:05 | NUR ---
1130 DRESSED. SHIVERING & SHAKING. PROVIDED WITH ORANGE JUICE & PEANUT BUTTER. EATING & DRINKING. Naif PEÑA R.N. 1145 AWAKE & ALERT. NOT SHIVERING @ PRESENT. GIVEN DISCHARGE INFORMATION INCLUDING: MED REC, RTC APPT., [facility] POST ENDOSCOPY D/C INSTRUCTIONS, & SHEET LISTING NSAIDS TO AVOID. PT VOICED UNDERSTANDING. TO PRIVATE CAR PER WHEELCHAIR BY THIS NURSE. HOME WITH SONOTONIEL. Naif PEÑA R.N.
== END 2020-08-11 11:45 | disposition home or self-care (01) ==
LOC: D.OPS 05:38
PROVIDERS: Anesthesiology; ATTEND Surgery
DX: Z86.010 Personal history of colon polyps (principal); Z87.19 Personal history of other diseases of the digestive system; K22.70 Barrett's esophagus without dysplasia; K20.80 Other esophagitis without bleeding; K57.30 Diverticulosis of large intestine without perforation or abscess without bleeding; E11.9 Type 2 diabetes mellitus without complications; K21.9 Gastro-esophageal reflux disease without esophagitis; I10 Essential (primary) hypertension